=== PATIENT | female | born 1985 | race Hispanic/Latino ===

== ENCOUNTER 2017-10-27 23:30 | Emergency (ER) | payer SELFPAY ==
[~2017-10-27] VITALS: Ht 157.5 cm; Wt 59.0 kg
[2017-10-27] MEDS ORDERED: ONDANSETRON HCL INJ 2 MG/ML VIAL IV STA (23:55)
[2017-10-27] MEDS ORDERED: KETOROLAC TROMETHAMINE 30 MG/ML VIAL IV STA (23:56)
[2017-10-28] MEDS ORDERED: SODIUM CHLORIDE 0.9% 1000ML 1,000 ML IV SCH
[2017-10-28] MEDS ORDERED: POTASSIUM CHLORIDE 20 MEQ TAB CR PO STA (01:01)
[2017-10-28 01:34] VITALS: BP 127/63
== END 2017-10-28 01:34 | disposition home or self-care (01) ==
LOC: FSED 23:30
DX: R11.2 Nausea with vomiting, unspecified (principal); R10.9 Unspecified abdominal pain; R19.7 Diarrhea, unspecified; E87.6 Hypokalemia; K52.9 Noninfective gastroenteritis and colitis, unspecified
CPT/HCPCS: 80053; 81003; 81025; 85025; 99283; J1885; J2405